=== PATIENT | female | born 1995 | race African-American/Black ===

== ENCOUNTER 2017-05-14 12:50 | Emergency (ER) | payer OTHER ==
[~2017-05-14] VITALS: Ht 160 cm; Wt 121.1 kg
[2017-05-14 13:29] VITALS: BP 141/79; TEMP 98.5
== END 2017-05-14 13:30 | disposition home or self-care (01) ==
LOC: ED 12:50
DX: N89.8 Other specified noninflammatory disorders of vagina (principal); O26.893 Other specified pregnancy related conditions, third trimester; Z3A.39 39 weeks gestation of pregnancy
CPT/HCPCS: 99284

== ENCOUNTER → 2017-05-18 05:41 | Outpatient (CLI) | payer OTHER | END | disposition home or self-care (01) | LOC: AMB 05:41 | DX: Z33.1 Pregnant state, incidental (principal) ==

== ENCOUNTER 2019-05-22 19:12 | Emergency (ER) | payer OTHER ==
[~2019-05-22] VITALS: Ht 160 cm; Wt 98.0 kg
[2019-05-22 21:30] VITALS: BP 121/65; TEMP 97.8
== END 2019-05-22 21:30 | disposition home or self-care (01) ==
LOC: ED 19:12
DX: K08.89 Other specified disorders of teeth and supporting structures (principal)
CPT/HCPCS: 99282